=== PATIENT | female | born 1970 | race Caucasian/White ===

== ENCOUNTER → 2016-09-25 | Outpatient (CLI) | payer SELFPAY | END | disposition home or self-care (01) | LOC: LABWHC1 11:24 | PROVIDERS: ATTEND Psychiatry & Neurology Neurology | DX: G40.209 Localization-related (focal) (partial) symptomatic epilepsy and epileptic syndromes with complex partial seizures, not intractable, without status epilepticus (principal) | CPT/HCPCS: 36415; 80175 ==

== ENCOUNTER → 2017-06-16 | Outpatient (CLI) | payer BC | END | disposition home or self-care (01) | LOC: LABWHC1 07:27 | PROVIDERS: ATTEND Psychiatry & Neurology Neurology | DX: G40.909 Epilepsy, unspecified, not intractable, without status epilepticus (principal); R53.83 Other fatigue; R53.81 Other malaise | CPT/HCPCS: 36415; 87390 ==

== ENCOUNTER → 2017-10-22 | Outpatient (CLI) | payer OTHER | END | disposition home or self-care (01) | LOC: LABWHC1 15:50 | PROVIDERS: ATTEND Psychiatry & Neurology Neurology | DX: G40.909 Epilepsy, unspecified, not intractable, without status epilepticus (principal) | CPT/HCPCS: 36415; 80175 ==

== ENCOUNTER → 2017-11-07 | Outpatient (CLI) | payer OTHER ==
[2017-11-07 11:48] LABS: Basophils % (A) 1 %; Eosinophils # (A) 0.1 k/uL (0-0.7); Eosinophils % (A) 2 %; HCT 39.5 % (34.0-46.0); HGB 12.8 gm/dL (11.4-16.0); Lymphocytes # (A) 1.8 k/uL (1.0-4.8); Lymphocytes % (A) 27 %; MCH 29.4 pg (25.0-35.0); MCHC 32.5 g/dL (31.0-37.0); MCV 90.6 fL (80.0-100.0); Mean Platelet Volume 6.8; Monocytes # (A) 0.4 k/uL (0-1.0); Monocytes % (A) 6 %; Neutrophils % (A) 61 %; Platelet Count 332 k/uL (150-450); RBC 4.36 m/uL (3.80-5.40); WBC 6.5 k/uL (3.8-10.6)
[2017-11-07 12:22] LABS: ALT 13 U/L (9-52); AST 14 U/L (14-36); Albumin 3.9 g/dL (3.5-5.0); Alkaline Phosphatase 45 U/L (38-126); Anion Gap 9 mmol/L; Blood Urea Nitrogen 9 mg/dL (7-17); Calcium 9.4 mg/dL (8.4-10.2); Carbon Dioxide 28 mmol/L (22-30); Chloride 105 mmol/L (98-107); Glucose 75 mg/dL (74-99); Potassium 4.2 mmol/L (3.5-5.1); Sodium 142 mmol/L (137-145); Total Bilirubin 0.3 mg/dL (0.2-1.3); Total Protein 6.6 g/dL (6.3-8.2)
[2017-11-07 12:37] LABS: T4, Free (Free Thyroxine) 0.93 ng/dL (0.78-2.19)
== END | disposition home or self-care (01) ==
LOC: LABWHC1 11:18
PROVIDERS: ATTEND Internal Medicine Critical Care Medicine
DX: R06.00 Dyspnea, unspecified (principal)
CPT/HCPCS: 36415; 80053; 84439; 84443; 85025

== ENCOUNTER → 2017-11-08 | Outpatient (CLI) | payer OTHER ==
--- NOTE | 2017-11-08 17:13 | ECHOF ---
Referral Reason:R06.00 Dyspnea MEASUREMENTS -------- HEIGHT: 162.6 cm WEIGHT: 65.3 kg BP: 127/64 RVIDd: 2.9 cm (< 3.3) IVSd: 0.9 cm (0.6 - 1.1) LVIDd: 4.1 cm (3.9 - 5.3) LVPWd: 1.0 cm (0.6 - 1.1) IVSs: 1.3 cm LVIDs: 2.7 cm LVPWs: 1.4 cm LAESV Index (A-L): 12.01 ml/m Ao Diam: 2.4 cm (2.0 - 3.7) AV Cusp: 1.8 cm (1.5 - 2.6) MV EXCURSION: 20.304 mm (> 18.000) MV EF SLOPE: 95 mm/s (70 - 150) EPSS: 0.3 cm MV E Junior: 0.80 m/s MV DecT: 249 ms MV A Junior: 0.74 m/s MV E/A Ratio: 1.08 FINDINGS -------- Sinus rhythm. This was a technically good study. The left ventricular size is normal. Left ventricular wall thickness is normal. Overall left vent ricular systolic function is normal with, an EF between 60 - 65 %. The right ventricle is normal in size. Normal LA size by volume 22+/-6 ml/m2. The right atrium is normal in size. There is mild aortic valve sclerosis. The mitral valve is normal. The tricuspid valve appears structurally normal. There is no pulmonic regurgitation present. The aortic root size is normal. Increse flow velocity in descending portion of AO arch Normal inferior vena cava with normal inspiratory collapse consistent with estimated right atrial pre ssure of 5 mmHg. There is no pericardial effusion. CONCLUSIONS -------- 1. Sinus rhythm. 2. This was a technically good study. 3. The left ventricular size is normal. 4. Left ventricular wall thickness is normal. 5. Overall left ventricular systolic function is normal with, an EF between 60 - 65 %. 6. The right ventricle is normal in size. 7. Normal LA size by volume 22+/-6 ml/m2. 8. The right atrium is normal in size. 9. There is mild aortic valve sclerosis. 10. The mitral valve is normal. 11. The tricuspid valve appears structurally normal. 12. There is no pulmonic regurgitation present. 13. The aortic root size is normal. 14. Increse flow velocity in descending portion of AO arch 15. Normal inferior vena cava with normal inspiratory collapse consistent with estimated right atrial pressure of 5 mmHg. 16. There is no pericardial effusion. 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
== END ==
LOC: RADECHMAIN 11:20
PROVIDERS: ATTEND Internal Medicine Critical Care Medicine
DX: I35.8 Other nonrheumatic aortic valve disorders (principal)
CPT/HCPCS: 93306

== ENCOUNTER 2018-05-14 21:24 | Emergency (ER) | payer OTHER ==
[2018-05-14 22:16] VITALS: TEMP 98.4
[2018-05-14] MEDS ORDERED: ONDANSETRON 4 MG/2 ML VIAL IVP STA (22:41)
[2018-05-14] MEDS ORDERED: SODIUM CHLORIDE 0.9% 1,000 ML IV STA (22:41)
[2018-05-14] MEDS ORDERED: MORPHINE SULFATE 2 MG/ML SYRINGE IVP STA (22:41)
[2018-05-14] MEDS ORDERED: KETOROLAC 30 MG/ML 1 ML VIAL IVP STA (22:41)
[2018-05-14 23:16] LABS: Basophils % (A) 0 %; Eosinophils # (A) 0.1 k/uL (0-0.7); Eosinophils % (A) 1 %; HCT 41.3 % (34.0-46.0); HGB 13.3 gm/dL (11.4-16.0); Lymphocytes # (A) 1.8 k/uL (1.0-4.8); Lymphocytes % (A) 13 %; MCH 29.8 pg (25.0-35.0); MCHC 32.4 g/dL (31.0-37.0); MCV 92.1 fL (80.0-100.0); Mean Platelet Volume 6.7; Monocytes % (A) 7 %; Neutrophils # (A) 10.4 k/uL (1.3-7.7); Neutrophils % (A) 76 %; Platelet Count 322 k/uL (150-450); RBC 4.48 m/uL (3.80-5.40); RDW 12.6 % (11.5-15.5); WBC 13.8 k/uL (3.8-10.6)
[2018-05-14 23:22] LABS: ALT 28 U/L (9-52); AST 33 U/L (14-36); Albumin 4.1 g/dL (3.5-5.0); Alkaline Phosphatase 58 U/L (38-126); Amylase 99 U/L (30-110); Anion Gap 8 mmol/L; Blood Urea Nitrogen 10 mg/dL (7-17); Calcium 9.3 mg/dL (8.4-10.2); Carbon Dioxide 28 mmol/L (22-30); Chloride 103 mmol/L (98-107); Glucose 98 mg/dL (74-99); Lipase 127 U/L (23-300); Potassium 4.7 mmol/L (3.5-5.1); Sodium 139 mmol/L (137-145); Total Bilirubin 0.3 mg/dL (0.2-1.3); Total Protein 7.1 g/dL (6.3-8.2)
--- NOTE | 2018-05-14 23:22 | ED ---
Abdominal Pain HPI - General Chief Complaint: Abdominal Pain Stated Complaint: right side abdominal pain Time Seen by Provider: 05/14/18 22:30 Source: patient, RN notes reviewed, old records reviewed Mode of arrival: ambulatory Limitations: no limitations - History of Present Illness Initial Comments: 48 year old female presents with RUQ and RLQ pain, colicky and sharp in nature for 2 days. No fevers or chills. She reports no other associated symptoms including diarrhea, vomiting, or nausea. She reports pain is worse with movement. No significant surgical history. Denies urinary symptoms and fever. - Related Data Home Medications Medication Instructions Recorded Confirmed Ranitidine HCl 150 mg PO HS 05/20/14 05/14/18 lamoTRIgine [LaMICtal] 100 mg PO BID 05/20/14 05/14/18 lamoTRIgine [LaMICtal] 25 mg PO BID 05/14/18 05/14/18 Previous Rx's Medication Instructions Recorded Acetaminophen with Codeine 1 tab PO Q6H PRN 3 Days #12 tab 05/15/18 [Tylenol w/codeine #3] Ciprofloxacin HCl [Cipro] 500 mg PO Q12HR 10 Days tab 05/15/18 metroNIDAZOLE [Flagyl] 500 mg PO TID #30 tab 05/15/18 Allergies Allergy/AdvReac Type Severity Reaction Status Date / Time No Known Allergies Allergy Verified 05/14/18 22:31 Review of Systems ROS Statement: Those systems with pertinent positive or pertinent negative responses have been documented in the HPI. ROS Other: All systems not noted in ROS Statement are negative. Past Medical History Past Medical History: GERD/Reflux, Hyperlipidemia, Osteoarthritis (OA), Seizure Disorder Additional Past Medical History / Comment(s): last seizure 2005 History of Any Multi-Drug Resistant Organisms: None Reported Past Surgical History: Tonsillectomy Additional Past Surgical History / Comment(s): D & C's Past Anesthesia/Blood Transfusion Reactions: Motion Sickness, Postoperative Nausea & Vomiting (PONV) Additional Past Anesthesia/Blood Transfusion Reaction / Comment(s): room spinning w/waking up from a surg. Past Psychological History: No Psychological Hx Reported Smoking Status: Never smoker Past Alcohol Use History: None Reported Past Drug Use History: None Reported General Exam - General Exam Comments Initial Comments: This is a well appearing 48 year old female, no distress. Limitations: no limitations General appearance: alert, in no apparent distress Head exam: Present: atraumatic, normocephalic, normal inspection Eye exam: Present: normal appearance, PERRL, EOMI. Absent: scleral icterus, conjunctival injection, periorbital swelling ENT exam: Present: normal exam, mucous membranes moist Neck exam: Present: normal inspection. Absent: tenderness, meningismus, lymphadenopathy Respiratory exam: Present: normal lung sounds bilaterally. Absent: respiratory distress, wheezes, rales, rhonchi, stridor Cardiovascular Exam: Present: regular rate, normal rhythm, normal heart sounds. Absent: systolic murmur, diastolic murmur, rubs, gallop, clicks GI/Abdominal exam: Present: soft, tenderness (RUQ pain and RLQ pain with palpatoin), normal bowel sounds. Absent: distended, guarding, rebound, rigid Extremities exam: Present: normal inspection, full ROM, normal capillary refill. Absent: tenderness, pedal edema, joint swelling, calf tenderness Back exam: Present: normal inspection Neurological exam: Present: alert, oriented X3, CN II-XII intact Skin exam: Present: warm, dry, intact, normal color. Absent: rash Course Vital Signs 05/14/18 05/15/18 22:15 01:57 Temperature 98.4 F 98.4 F Pulse Rate 64 75 Respiratory 18 16 Rate Blood Pressure 105/61 116/56 O2 Sat by Pulse 98 97 Oximetry Medical Decision Making - Medical Decision Making 48 year old female with RUQ and RLQ pain, worse with movement for 2 days. Patient labs show leukocytosis, normal CMP. Patient has some mild hematuria. Patient RUQ US is gentavie for acute process. Due to pain in RUQ, and leukocytosis, CT scan preformed. Evidence of diverticulitis noted. Started patient on cipro and flagyl, she does not want Rx for pain medication. REturn parameters discussed. - Lab Data Result diagrams: 05/14/18 22:44 05/14/18 22:44 Lab Results 05/14/18 05/14/18 05/14/18 Range/Units 22:44 22:44 22:44 WBC 13.8 H (3.8-10.6) k/uL RBC 4.48 (3.80-5.40) m/uL Hgb 13.3 (11.4-16.0) gm/dL Hct 41.3 (34.0-46.0) % MCV 92.1 (80.0-100.0) fL MCH 29.8 (25.0-35.0) pg MCHC 32.4 (31.0-37.0) g/dL RDW 12.6 (11.5-15.5) % Plt Count 322 (150-450) k/uL Neutrophils % 76 % Lymphocytes % 13 % Monocytes % 7 % Eosinophils % 1 % Basophils % 0 % Neutrophils # 10.4 H (1.3-7.7) k/uL Lymphocytes # 1.8 (1.0-4.8) k/uL Monocytes # 1.0 (0-1.0) k/uL Eosinophils # 0.1 (0-0.7) k/uL Basophils # 0.0 (0-0.2) k/uL PT 9.4 (9.0-12.0) sec INR 0.9 (<1.2) APTT 23.9 (22.0-30.0) sec Sodium 139 (137-145) mmol/L Potassium 4.7 (3.5-5.1) mmol/L Chloride 103 (98-107) mmol/L Carbon Dioxide 28 (22-30) mmol/L Anion Gap 8 mmol/L BUN 10 (7-17) mg/dL Creatinine 0.87 (0.52-1.04) mg/dL Est GFR (CKD-EPI)AfAm >90 (>60 ml/min/1.73 sqM) Est GFR (CKD-EPI)NonAf 79 (>60 ml/min/1.73 sqM) Glucose 98 (74-99) mg/dL Calcium 9.3 (8.4-10.2) mg/dL Total Bilirubin 0.3 (0.2-1.3) mg/dL AST 33 (14-36) U/L ALT 28 (9-52) U/L Alkaline Phosphatase 58 (38-126) U/L Total Protein 7.1 (6.3-8.2) g/dL Albumin 4.1 (3.5-5.0) g/dL Amylase 99 (30-110) U/L Lipase 127 (23-300) U/L Urine Color Urine Appearance (Clear) Urine pH (5.0-8.0) Ur Specific [place] (1.001-1.035) Urine Protein (Negative) Urine Glucose (UA) (Negative) Urine Ketones (Negative) Urine Blood (Negative) Urine Nitrite (Negative) Urine Bilirubin (Negative) Urine Urobilinogen (<2.0) mg/dL Ur Leukocyte Esterase (Negative) Urine RBC (0-5) /hpf Urine WBC (0-5) /hpf Ur Squamous Epith Cells (0-4) /hpf Calcium Oxalate Crystal (None) /hpf Amorphous Sediment (None) /hpf Urine Mucus (None) /hpf 05/14/18 Range/Units 22:44 WBC (3.8-10.6) k/uL RBC (3.80-5.40) m/uL Hgb (11.4-16.0) gm/dL Hct (34.0-46.0) % MCV (80.0-100.0) fL MCH (25.0-35.0) pg MCHC (31.0-37.0) g/dL RDW (11.5-15.5) % Plt Count (150-450) k/uL Neutrophils % % Lymphocytes % % Monocytes % % Eosinophils % % Basophils % % Neutrophils # (1.3-7.7) k/uL Lymphocytes # (1.0-4.8) k/uL Monocytes # (0-1.0) k/uL Eosinophils # (0-0.7) k/uL Basophils # (0-0.2) k/uL PT (9.0-12.0) sec INR (<1.2) APTT (22.0-30.0) sec Sodium (137-145) mmol/L Potassium (3.5-5.1) mmol/L Chloride (98-107) mmol/L Carbon Dioxide (22-30) mmol/L Anion Gap mmol/L BUN (7-17) mg/dL Creatinine (0.52-1.04) mg/dL Est GFR (CKD-EPI)AfAm (>60 ml/min/1.73 sqM) Est GFR (CKD-EPI)NonAf (>60 ml/min/1.73 sqM) Glucose (74-99) mg/dL Calcium (8.4-10.2) mg/dL Total Bilirubin (0.2-1.3) mg/dL AST (14-36) U/L ALT (9-52) U/L Alkaline Phosphatase (38-126) U/L Total Protein (6.3-8.2) g/dL Albumin (3.5-5.0) g/dL Amylase (30-110) U/L Lipase (23-300) U/L Urine Color Yellow Urine Appearance Cloudy H (Clear) Urine pH 7.0 (5.0-8.0) Ur Specific [place] 1.019 (1.001-1.035) Urine Protein Negative (Negative) Urine Glucose (UA) Negative (Negative) Urine Ketones Negative (Negative) Urine Blood Negative (Negative) Urine Nitrite Negative (Negative) Urine Bilirubin Negative (Negative) Urine Urobilinogen <2.0 (<2.0) mg/dL Ur Leukocyte Esterase Negative (Negative) Urine RBC 6 H (0-5) /hpf Urine WBC 1 (0-5) /hpf Ur Squamous Epith Cells 2 (0-4) /hpf Calcium Oxalate Crystal Occasional H (None) /hpf Amorphous Sediment Rare H (None) /hpf Urine Mucus Occasional H (None) /hpf - Radiology Data Radiology results: report reviewed RUQ US is negative for acute process. CT scan shows evidence of extensive diverticulosis, with evidence of diverticulitis over Transverse colon. Disposition Clinical Impression: Diverticulitis Disposition: HOME SELF-CARE Condition: Good Instructions: Diverticulitis (ED), Diverticulitis Diet (ED) Additional Instructions: Patient is advised to take the medication as prescribed. Follow-up with her primary care provider. Return to the emergency department if any alarming signs or symptoms occur. Prescriptions: Acetaminophen with Codeine [Tylenol w/codeine #3] 1 tab PO Q6H PRN 3 Days #12 tab PRN Reason: Nausea Ciprofloxacin HCl [Cipro] 500 mg PO Q12HR 10 Days tab metroNIDAZOLE [Flagyl] 500 mg PO TID #30 tab Is patient prescribed a controlled substance at d/c from ED?: Yes When asked, does pt state using other controlled substances?: No If prescribed controlled substance>3 days was MAPS reviewed?: Prescribed <3 Days Referrals: None,Stated [Primary Care Provider] - 1-2 days Dorinda Gibbs MD [STAFF PHYSICIAN] - 1-2 days Time of Disposition: 01:38
[2018-05-14 23:23] LABS: Amorphous Sediment,Urine Rare /hpf; Appearance,Urine Cloudy (Clear); Bilirubin,Urine Negative (Negative); Blood,Urine Negative (Negative); Calcium Oxalate Crystals,Urine Occasional /hpf; Color,Urine Yellow; Glucose,Urine (UA) Negative (Negative); INR 0.9 (<1.2); Ketones,Urine Negative (Negative); Leukocyte Esterase,Urine Negative (Negative); Mucus,Urine Occasional /hpf; Nitrite,Urine Negative (Negative); Partial Thromboplastin Time 23.9 sec (22.0-30.0); Protein,Urine Negative (Negative); Prothrombin Time 9.4 sec (9.0-12.0); RBC,Urine 6 /hpf (0-5); Specific Gravity,Urine 1.019 (1.001-1.035); Squamous Epithelial Cell,Urine 2 /hpf (0-4); Urobilinogen,Urine <2.0 mg/dL (<2.0); WBC,Urine 1 /hpf (0-5)
--- NOTE | 2018-05-14 23:50 | XR ---
EXAMINATION TYPE: XR KUB DATE OF EXAM: 05/14/2018 COMPARISON: NONE HISTORY: Right-sided pain TECHNIQUE: 2 views FINDINGS: 2 upright views show no sign of intestinal obstruction or pneumoperitoneum. Fecal pattern i s normal. There is 8 mm calcification over the upper pole left kidney. Lung bases are clear. There is no sign of a mass. IMPRESSION: Nonacute abdomen. Possible left renal calculus.
--- NOTE | 2018-05-15 00:24 | US ---
EXAMINATION TYPE: US gallbladder DATE OF EXAM: 05/14/2018 COMPARISON: NONE CLINICAL HISTORY: Pain. RUQ pain. EXAM MEASUREMENTS: Liver Length: 15.3 cm Gallbladder Wall: 0.31 cm CBD: 0.38 cm Right Kidney: 9.9 x 3.6 x 4.3 cm Pancreas: wnl Liver: wnl Gallbladder: No stones seen Evidence for sonographic Rojas's sign: No CBD: wnl Right Kidney: No hydronephrosis or masses seen IMPRESSION: No gallstones or dilated ducts. Negative right upper quadrant abdominal sonogram.
--- NOTE | 2018-05-15 01:31 | CT ---
EXAMINATION TYPE: CT abdomen pelvis w con DATE OF EXAM: 05/15/2018 COMPARISON: None HISTORY: No prior, right sided abd pain CT DLP: 517.90 mGycm Automated exposure control for dose reduction was used. TECHNIQUE: Helical acquisition of images was performed from the lung bases through the pelvis. CONTRAST: Performed without Oral Contrast and with IV Contrast, patient injected with 100 mL of Isovue 300. FINDINGS: Lung bases are clear. There is no pleural effusion. Heart size is normal. There is no pericardial eff usion. Liver spleen pancreas gallbladder appear normal. Bile ducts are not dilated. There is no adrenal mass . Kidneys show satisfactory contrast opacification. There is no hydronephrosis. There is 1 cm calculu s in the lateral left kidney. There are smaller left renal calculus. There is no hydronephrosis. Ther e is no retroperitoneal adenopathy. There is some fat stranding in the right mid abdomen. This is near the hepatic flexure of the colon i n the proximal transverse colon. There are diverticula in the right colon. There are multiple diverti cula in the sigmoid colon. Appendix appears normal. There is no ascites. There is no sign of free air . Lumbar spine appears intact. Bladder is almost empty. There is 3 cm cyst on the left ovary. IMPRESSION: EXTENSIVE COLONIC DIVERTICULOSIS. INFLAMMATORY CHANGES IN THE PROXIMAL TRANSVERSE COLON CONSISTENT WI TH ACUTE DIVERTICULITIS. NONOBSTRUCTING LEFT RENAL CALCULI. NORMAL APPENDIX. NO ABSCESS.
[2018-05-15] MEDS ORDERED: metroNIDAZOLE 500 MG TAB PO STA (01:40)
[2018-05-15] MEDS ORDERED: CIPROFLOXACIN HCL 500 MG TAB PO STA (01:40)
[2018-05-15 01:57] VITALS: BP 116/56; PULSE 75; RESP 16
== END 2018-05-15 02:08 | disposition home or self-care (01) ==
LOC: EC 21:24
DX: K57.32 Diverticulitis of large intestine without perforation or abscess without bleeding (principal); D72.829 Elevated white blood cell count, unspecified; R31.9 Hematuria, unspecified; K21.9 Gastro-esophageal reflux disease without esophagitis; G40.909 Epilepsy, unspecified, not intractable, without status epilepticus; Z79.899 Other long term (current) drug therapy
CPT/HCPCS: 36415; 80053; 82150; 83690; 85025; 85610; 85730; 81001; 87086; 74018; 76705; 99285; 96374; 96375 ×2; 96361; J2405; J1885; J2270; 74177

== ENCOUNTER → 2018-11-08 | Outpatient (CLI) | payer OTHER | LOC: LABWHC1 12:12 | PROVIDERS: ATTEND Psychiatry & Neurology Neurology | DX: G40.909 Epilepsy, unspecified, not intractable, without status epilepticus (principal) | CPT/HCPCS: 36415; 80175 ==

== ENCOUNTER → 2019-10-14 | Outpatient (CLI) | payer OTHER | END | disposition home or self-care (01) | LOC: LABWHC1 14:43 | PROVIDERS: ATTEND Psychiatry & Neurology Neurology | DX: G40.909 Epilepsy, unspecified, not intractable, without status epilepticus (principal); Z79.899 Other long term (current) drug therapy | CPT/HCPCS: 36415; 80175; 82306 ==

== ENCOUNTER → 2020-08-16 | Outpatient (CLI) | payer OTHER ==
[2020-08-16 10:10] VITALS: BP 133/73; PULSE 77; RESP 18; TEMP 98.6
--- NOTE | 2020-08-16 10:29 | P.CONS ---
History of Present Illness - Reason for Consult Consult date: 08/16/20 - Chief Complaint Occipital headache - History of Present Illness This is a 50-year-old lady with history of occipital headache for which she had occipital nerve block bilaterally about 5 years ago which gave her significant relief of pain on the right side however she still has pain on the left side of her head. The pain is mostly located in the occipital and suboccipital area on the left side with a slight radiation downwards to the left paravertebral musculature of the cervical spine. The patient denies any numbness or tingling in the upper extremities or any weakness. She also denies any bowel or bladder dysfunction. This pain occasionally wakes her up at night. The patient describes her pain as sharp in quality and steady with no pulsating quality. The pain gets worse by rotation of the neck to the left side and over the day. The patient was referred to our clinic for a trial of occipital nerve block. The patient has a remote history of breast cancer and also of meningioma for which she is being evaluated by a neurosurgeon. Past Medical History Past Medical History: Cancer, GERD/Reflux, Hyperlipidemia, Osteoarthritis (OA), Seizure Disorder Additional Past Medical History / Comment(s): last seizure 2005, LT BREAST CANCER History of Any Multi-Drug Resistant Organisms: None Reported Past Surgical History: Breast Surgery, Hysterectomy, Tonsillectomy Additional Past Surgical History / Comment(s): D & C's, LT BREAST LUMPECTOMY. BILAT OCCIPITAL NERVE BLOCKS Past Anesthesia/Blood Transfusion Reactions: Motion Sickness, Postoperative Nausea & Vomiting (PONV) Additional Past Anesthesia/Blood Transfusion Reaction / Comm: room spinning w/waking up from a surg. Past Psychological History: No Psychological Hx Reported Smoking Status: Never smoker Past Alcohol Use History: None Reported Past Drug Use History: None Reported - Past Family History Mother Family Medical History: No Reported History Medications and Allergies Home Medications Medication Instructions Recorded Confirmed Type lamoTRIgine [LaMICtal] 100 mg PO BID 05/20/14 08/16/20 History lamoTRIgine [LaMICtal] 25 mg PO BID 05/14/18 08/16/20 History Famotidine [Pepcid] 20 mg PO DAILY 08/11/20 08/16/20 History Tamoxifen Citrate 20 mg PO DAILY 08/11/20 08/16/20 History Allergies Allergy/AdvReac Type Severity Reaction Status Date / Time No Known Allergies Allergy Verified 08/11/20 09:26 Physical Exam Vitals: Vital Signs Temp Pulse Resp BP Pulse Ox 08/16/20 10:03 98.6 F 77 18 133/73 98 - Constitutional General appearance: average body habitus - EENT Eyes: PERRLA - Gastrointestinal General gastrointestinal: no organomegaly, soft, no tenderness - Integumentary Integumentary: no calor, no cellulitis, no cyanotic, no decreased turgor, no flushed, no jaundiced, no normal, no normal turgor, no pale, no rash, no ulcer - Neurologic Muscle strength exam of the upper extremities was normal and symmetrical. Positive tenderness in the occipital area on the left side and also in the suboccipital area. Slightly decreased range of motion to the left rotation of the cervical spine with increasing pain. 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 Differential diagnosis includes: Left occipital neuralgia Cervical spondylosis without myelopathy The patient may benefit from getting left occipital nerve block and if this does not help her pain then we might need to do C2-C3 and third occipital nerve block under fluoroscopic guidance in the future. I thank you for the referral
== END | disposition home or self-care (01) ==
LOC: PNWHC3 09:54
PROVIDERS: ATTEND Anesthesiology
DX: R51.9 Headache, unspecified (principal); M47.812 Spondylosis without myelopathy or radiculopathy, cervical region; K21.9 Gastro-esophageal reflux disease without esophagitis; M19.90 Unspecified osteoarthritis, unspecified site; Z79.899 Other long term (current) drug therapy; Z79.891 Long term (current) use of opiate analgesic
CPT/HCPCS: 99211

== ENCOUNTER 2020-09-30 08:24 | Day surgery (SDC) | payer OTHER ==
[2020-09-29 09:35] VITALS: BMI 25.8
[2020-09-30 08:52] VITALS: TEMP 98.1
[2020-09-30] MEDS ORDERED: DEXAMETHASONE SOD PHOSPHATE 10 MG/ML 1 ML VIAL ONE (09:41)
[2020-09-30] MEDS ORDERED: ROPIVACAINE 5MG/ML 20ML VIAL ONE (09:41)
--- NOTE | 2020-09-30 09:49 | P.PCN ---
Date of Procedure: 09/30/20 Anesthesia: none Surgeon: Amisha Yin Pathology: none sent Condition: stable Disposition: PACU Description of Procedure: Pre-operative diagnosis: Left ) occipital neuralgia Post Operative Diagnosis Left occipital neuralgia Procedure: Left occipital nerve block ANESTHESIA: none EBL: Minimal PROCEDURE INDICATION: The patient with neck pain and headache secondary to occipital neuralgia unresponsive to conservative treatments. PROCEDURE DESCRIPTION / TECHNIQUE: The patient was seen and identified in the preoperative area. Risks, benefits, complications, and alternatives were discussed with the patient, the patient agreed to proceed with the procedure and signed the consent. IV was started. Vital signs remained stable throughout the procedure. Patient was taken to the OR and time out was completed. The patient was placed in the prone position on the procedure table. The cervical area and left occiptial area were prepped with chloraprep. Critical pause was taken. Vital signs were closely monitored during the procedure. The the occipital exuberance and superior nuchal line were identified on the right side of the occiput. The greater occipital nerve location was estimated to be medial to the occipital artery and one third of the distance between the occipital exuberance and the right mastoid and the lesser occipital nerve was about two thirds of the distance between the occipital exuberance and the left mastoid on the superior nuchal line. I used 25-gauge 1-1/2 inch needle to go through the skin at these 2 points and infiltrate 2.5 MLS of a solution made up of 6 MLS Marcaine 0.5% +5 mg of decadron. The solution was infiltrated down to the periosteum. Patient tolerated procedure well.
[2020-09-30 10:07] VITALS: BP 117/65; PULSE 77; RESP 17
--- NOTE | 2020-10-04 16:21 | CDI ---
Date: 10.04.20 CDS/School Commissioner Name: Harleen Ly Phone: If any questions, call Keyanna Toribio General Manager [employer] at [phone] Patient Name: Elodia Pozo Admit Date 09.30.20 Discharge Date: 09.30.20 ATTENTION: The [facility] Coding Staff appreciate your assistance in clarifying documentation. Please respond to the clarification below the line at the bottom and electronically sign. The [facility] Coding staff will review the response and follow-up if needed. Please note: Queries are made part of the Legal Health Record. If you have any questions, please contact the General Manager [employer]. Dear Dr. Yin In order to code to the greatest specificity and for the greatest reimbursement I need the following information: Your procedure note has left occipital nerve block, in the body of the report you have documented The greater occipital nerve location was estimated to be medial to the occipital artery and one third of the distance between the occipital exuberance and the right mastoid and the lesser occipital nerve was about two thirds of the distance between the occipital exuberance and the left mastoid on the superior nuchal line.. :to go through the skin at these 2 points.. Was there two nerve blocks done.... the greater and lesser on the left only left and right? if so greater or lesser? Please clarify. Thank you for your kind consideration. MTDD
== END 2020-09-30 10:15 | disposition home or self-care (01) ==
LOC: ORPAIN 08:24
PROVIDERS: ATTEND Anesthesiology
DX: M54.81 Occipital neuralgia (principal); C50.919 Malignant neoplasm of unspecified site of unspecified female breast; G40.909 Epilepsy, unspecified, not intractable, without status epilepticus; Z92.3 Personal history of irradiation; Z90.710 Acquired absence of both cervix and uterus
CPT/HCPCS: 64405; J1100; J2795

== ENCOUNTER → 2020-10-20 | Outpatient (CLI) | payer OTHER ==
[2020-10-20 08:37] VITALS: BP 121/79; PULSE 70; RESP 18; TEMP 98.3
--- NOTE | 2020-10-20 08:48 | P.PN ---
Subjective Progress Note Date: 10/20/20 This 50 years old female with a history of severe headache, was diagnosed with a left side occipital neuralgia, a few weeks ago we have done left-sided occipital nerve block she reported that she had 100% relief of her headache, after the injection she is doing very well and she denies any motor or sensory deficit Objective - Vital Signs Vital signs: Vital Signs Temp 98.3 F 10/20/20 08:34 Pulse 70 10/20/20 08:34 Resp 18 10/20/20 08:34 BP 121/79 10/20/20 08:34 Pulse Ox 96 10/20/20 08:34 Intake & Output 10/19/20 10/20/20 10/20/20 18:59 06:59 18:59 Weight 64.41 kg - Exam Physical Examinations : -Constitutiona : Cooperative , not in acute distress . -HEENT : nech : supple , no Lymphadenopathy , normal thyroid size . : eyes : no ptosis , no icterus, no photophobia . - neurologic : Cranial nerve II to XII intact , no focal neurological deffecit . -psychatric : alert , oriented X 3 , appropriate affect , intact judgment and insight . -Lymphatic : no Lymphadenopathy . - musculoskeltal : Cervical Spine motor stregnth in the deltoid and biceps, normal right side , normal Left side motor stregnth biceps and the wrist extensors normal right side ,normal left side . motor stregnth in the triceps muscle . normal Right side , normal Left side . Lumber spine moter stegnth lower extremities ,thigh and legs 5/5 Right side , 5/5 Left side Assessment and Plan Plan: Assessment and plan=1-left occipital neuralgia. Headache improved after left occipital nerve block ,she will follow up when necessary. - PQRS measures = - Patient's medications are documented in the chart. -Tobacco use is negative and counseling.Given. -Patient's has not received pneumococcal vaccine. -Advanced care planning discussed, patient not eligible. -Opiate contract not signed. -Pain positive and follow-up visit/procedure is scheduled. -Patient's blood pressure measured [ 121/79 ] , and documented in the record ,and patient will follow up with the primary care. -Patient's weight was measured and body mass index [ 25.2 ] above the normal limits and counseling was done. and patient instructed to follow-up with the primary care physician. -Patient was not identified as an unhealthy alcohol user Time with Patient: Less than 30
== END | disposition home or self-care (01) ==
LOC: PNWHC3 08:24
PROVIDERS: ATTEND Specialist
DX: M54.81 Occipital neuralgia (principal); R51.9 Headache, unspecified
CPT/HCPCS: 99211

== ENCOUNTER → 2020-11-18 | Outpatient (CLI) | payer OTHER | END | disposition home or self-care (01) | LOC: LABWHC1 09:20 | PROVIDERS: ATTEND Psychiatry & Neurology Neurology | DX: G40.909 Epilepsy, unspecified, not intractable, without status epilepticus (principal) | CPT/HCPCS: 36415; 80175 ==